=== PATIENT | female | born 1975 | race Caucasian/White ===

== ENCOUNTER 2016-12-08 03:29 | Emergency (ER) | payer OTHER ==
[~2016-12-08] VITALS: Ht 154.9 cm; Wt 60.5 kg
[~2016-12-08 03:29] MED LIST: ONDA4TAB8 PO; RANI150T9 PO
[2016-12-08 03:34] VITALS: Ht 154.9 cm; Wt 60.5 kg
[2016-12-08 04:28] LABS: ADD SCAN DIFF NO
[2016-12-08 04:51] LABS: URINE BILIRUBIN (Dip) NEGATIVE (NEGATIVE); URINE BLOOD (Dip) NEGATIVE (NEGATIVE); URINE COLOR LT. YELLOW (YELLOW); URINE GLUCOSE (Dip) NEGATIVE (NEGATIVE); URINE KETONES (Dip) NEGATIVE (NEGATIVE); URINE LEUKOCYTE ESTERASE (Dip) NEGATIVE (NEGATIVE); URINE NITRITE (Dip) NEGATIVE (NEGATIVE); URINE UROBILINOGEN (Dip) 0.2 E.U./dL (0.1-1.0)
[2016-12-08 04:52] LABS: ABNORMAL IP MESSAGE 1; BASOPHILS % 0.2 % (0.0-2.0); EOSINOPHILS # 0.1 10^3/ul (0.0-0.5); EOSINOPHILS % 0.5 % (0.0-7.0); HEMATOCRIT 42.8 % (37.0-47.0); HEMOGLOBIN 14.5 g/dl (12.0-16.0); LYMPHOCYTES # 0.5 10^3/ul (0.8-2.9); LYMPHOCYTES % 4.8 % (15.0-51.0); MEAN CORPUSCULAR HEMOGLOBIN 31.6 pg (29.0-33.0); MEAN CORPUSCULAR HGB CONC 33.9 g/dl (32.0-37.0); MEAN CORPUSCULAR VOLUME 93.2 fl (82.0-101.0); MEAN PLATELET VOLUME 11.2 fl (7.4-10.4); MONOCYTE # 0.4 10^3/ul (0.3-0.9); MONOCYTES % 4.4 % (0.0-11.0); NEUTROPHIL # 8.4 10^3/ul (1.6-7.5); NEUTROPHILS % 89.8 % (39.0-77.0); PLATELET COUNT 197 10^3/UL (140-415); RED BLOOD COUNT 4.59 10^6/ul (4.20-5.40); RED CELL DISTRIBUTION WIDTH 12.4 % (11.5-14.5); WHITE BLOOD COUNT 9.3 10^3/ul (4.8-10.8)
[2016-12-08 04:53] LABS: ADD UMIC NO; URINE TOTAL PROTEIN (Dip) NEGATIVE (NEGATIVE)
[2016-12-08] MEDS ORDERED: ONDANSETRON 4 MG INJ IV STA (04:53)
[2016-12-08 05:00] LABS: ALBUMIN 4.3 g/dl (3.3-4.9); ALBUMIN/GLOBULIN RATIO 1.3; BILIRUBIN,INDIRECT 0.7 mg/dl (0-1.1); BILIRUBIN,TOTAL 0.7 mg/dl (0.2-1.3); CALCIUM 8.6 mg/dl (8.4-10.2); CREATININE 0.5 mg/dl (0.44-1.00); POTASSIUM 3.6 mmol/L (3.5-5.1); TOTAL PROTEIN 7.6 g/dl (6.1-8.1)
[2016-12-08] MEDS ORDERED: SOD CHLORIDE 0.9% 1,000 ML IV ONE (05:00)
--- NOTE | 2016-12-08 05:34 | ERA ---
ER Documentation Chief Complaint Date/Time DATE: 12/08/16 TIME: 05:32 Chief Complaint abdominal pain/vomiting/diarrhea since last night HPI This a 41-year-old female consequence of diffuse abdominal pain, 3-4 episodes of vomiting, 3 (diarrhea started yesterday. Diarrhea soft, unformed no blood. Vomiting was nonbilious nonbloody. No fevers no chills. No sick contacts. No other current complaints. ROS All systems reviewed and are negative except as per history of present illness. Medications Home Meds Active Scripts Ondansetron Hcl* (Zofran*) 4 Mg Tablet, 4 MG PO Q8H Y for NAUSEA AND/OR VOMITING , #10 TAB Prov:JULES BOYCE 08/03/15 Ranitidine Hcl* (Zantac*) 150 Mg Tablet, 150 MG PO BID Y for GASTROINTESTINAL UPSET, #30 TAB Prov:JULES BOYCE 08/03/15 Allergies Allergies: Coded Allergies: No Known Allergy (Verified , 12/08/16) PMhx/Soc Medical and Surgical Hx: pt denies Medical Hx, pt denies Surgical Hx History of Surgery: No Anesthesia Reaction: No Hx Neurological Disorder: No Hx Respiratory Disorders: No Hx Cardiac Disorders: No Hx Psychiatric Problems: No Hx Miscellaneous Medical Probl: No Hx Alcohol Use: No Hx Substance Use: No Hx Tobacco Use: No Smoking Status: Never smoker Physical Exam Vitals Vital Signs Date Time Temp Pulse Resp B/P Pulse Ox O2 Delivery O2 Flow Rate FiO2 12/08/16 03:34 98.4 62 20 121/87 98 Physical Exam Const: [] Head: Atraumatic Eyes: Normal Conjunctiva ENT: Normal External Ears, Nose and Mouth. Neck: Full range of motion..~ No meningismus. Resp: Clear to auscultation bilaterally Cardio: Regular rate and rhythm, no murmurs Abd: Soft, non tender, non distended. Normal bowel sounds Skin: No petechiae or rashes Back: No midline or flank tenderness Ext: No cyanosis, or edema Neur: Awake and alert Psych: Normal Mood and Affect Result Diagram: 12/08/16 0400 12/08/16 0400 Results 24 hrs Laboratory Tests Test 12/08/16 04:00 White Blood Count 9.310^3/ul Red Blood Count 4.5910^6/ul Hemoglobin 14.5g/dl Hematocrit 42.8% Mean Corpuscular Volume 93.2fl Mean Corpuscular Hemoglobin 31.6pg Mean Corpuscular Hemoglobin Concent 33.9g/dl Red Cell Distribution Width 12.4% Platelet Count 22504^3/UL Mean Platelet Volume 11.2fl Neutrophils % 89.8% Lymphocytes % 4.8% Monocytes % 4.4% Eosinophils % 0.5% Basophils % 0.2% Nucleated Red Blood Cells % 0.0/100WBC Neutrophils # 8.410^3/ul Lymphocytes # 0.510^3/ul Monocytes # 0.410^3/ul Eosinophils # 0.110^3/ul Basophils # 0.010^3/ul Nucleated Red Blood Cells # 0.010^3/ul Urine Color LT. YELLOW Urine Clarity CLEAR Urine pH >=9.0 Urine Specific [place] 1.010 Urine Ketones NEGATIVE Urine Nitrite NEGATIVE Urine Bilirubin NEGATIVE Urine Urobilinogen 0.2 E.U./dL Urine Leukocyte Esterase NEGATIVE Urine Hemoglobin NEGATIVE Urine Glucose NEGATIVE% Urine Total Protein NEGATIVE Sodium Level 136mmol/L Potassium Level 3.6mmol/L Chloride Level 104mmol/L Carbon Dioxide Level 25mmol/L Anion Gap 11 Blood Urea Nitrogen 15mg/dl Creatinine 0.50mg/dl Glucose Level 118mg/dl Calcium Level 8.6mg/dl Total Bilirubin 0.7mg/dl Direct Bilirubin 0.00mg/dl Indirect Bilirubin 0.7mg/dl Aspartate Amino Transf (AST/SGOT) 30IU/L Alanine Aminotransferase (ALT/SGPT) 37IU/L Alkaline Phosphatase 83IU/L Total Protein 7.6g/dl Albumin 4.3g/dl Globulin 3.30g/dl Albumin/Globulin Ratio 1.30 Lipase 37U/L Current Medications Medications (Trade) Dose Ordered Sig/Deisy Route PRN Reason Start Time Stop Time Status Last Admin Dose Admin Ondansetron HCl 4 mg 4 mg ONCE STAT IV 12/08/16 04:53 12/08/16 04:57 DC 12/08/16 05:04 Sodium Chloride (NS) 1,000 ml @ 1,000 mls/hr Q1H ONCE IV 12/08/16 05:00 12/08/16 05:59 12/08/16 05:07 Procedures/MDM CBC: [no e/o of systemic infection or severe anemia] CMP: [no e/o severe acidosis, alkalosis, renal failure, diabetic ketoacidosis, liver disease] Lipase: [no e/o pancreatitis] PT/INR: [normal coagulation] Urine: [no e/o acute infection or hematuria] Medical decision-making: This a 41-year-old female comes in with abdominal pain nausea vomiting diarrhea of uncertain nonspecific etiology. This is likely viral gastroenteritis. At this point is nonsurgical abdomen with serial negative abdominal exams. She has been fluid hydrated. Patient feels much better. She will be discharged home to follow-up here in 8 hours for serial abdominal exams to which the patient agrees. Told to return sooner for any return of symptomology. Departure Diagnosis: Primary Impression: Gastroenteritis Condition: Stable ZORAN CONTRERAS December 08, 2016 05:34
[2016-12-08] MEDS ORDERED: CIPR500T4 PO (05:35)
[2016-12-08] MEDS ORDERED: ONDA4TAB14 PO (05:35)
[2016-12-08 06:06] VITALS: BP 104/68; PULSE 63; RESP 16
== END 2016-12-08 06:08 | disposition home or self-care (01) ==
LOC: E/R 03:29
DX: K52.9 Noninfective gastroenteritis and colitis, unspecified (principal); R11.10 Vomiting, unspecified; R40.2142 Coma scale, eyes open, spontaneous, at arrival to emergency department; R40.2252 Coma scale, best verbal response, oriented, at arrival to emergency department; R40.2362 Coma scale, best motor response, obeys commands, at arrival to emergency department
CPT/HCPCS: 36415; 80053; 81003; 83690; 85025; 96361; 96374; J2405; J7030; Z7502; Z7610

== ENCOUNTER 2018-01-05 18:23 | Emergency (ER) | END 2018-01-05 22:28 | disposition home or self-care (01) ==